=== PATIENT | male | born 1950 | race Caucasian/White ===

== ENCOUNTER 2018-01-12 01:22 | Outpatient (CLI) | payer MEDICARE, BC, SELFPAY ==
[2018-01-12 09:58] VITALS: BP 159/95; PULSE 95; RESP 16; TEMP 36.1; O2SAT 97
--- NOTE | 2018-01-12 09:59 | DI.REPORT_ITS ---
SYMPTOMS/DIAGNOSIS: RT ANTERIOR AND LATERAL THIGH PAIN, MERALGIA PARESTHETIC RT SIDE, G57.11, ULTRASOUND FOR FEMORAL CUTANEOUS NERVE BLOCK An ultrasound examination of the right lateral thigh was performed. A needle is noted in position and Dr. Marroquin carried out a nerve block. Please see the procedure report for further information.
[2018-01-12] MEDS: Dexamethasone 10 MG/ML VIAL IM (10:13)
[2018-01-12] MEDS: Lidocaine 2% Pres-Free 5 ML VIAL IJ (10:14)
[2018-01-12 10:26] VITALS: PULSE 95; RESP 20; O2SAT 96
--- NOTE | 2018-01-12 10:29 | PDOC.PAIN ---
Date of Service: 01/12/18 Time of Service: 10:29 Pain Clinic Procedure Note ULTRASOUND GUIDED RIGHT LATERAL FEMORAL CUTANEOUS NERVE BLOCK Pre-Procedural Evaluation: AFSHIN BILL has been referred to the [facility] for an Ultrasound Guided right lateral femoral cutaneous nerve block injection for a chief complaint of right anterior thigh pain. I did review the notes from Dr. Macario and Ms. Hall. Pre-procedure Pain ScoreL 7/10 DX: Meralgia Peresthetica Patient was interviewed and the medical record reviewed. There were no medical, pharmacologic, radiographic, or other structural contraindications to preforming an ultrasound guided injection. Risks and expected side effects as well as potential benefits of the procedure were reviewed. The patient consent form was signed and witnessed. Standard time-out procedure was performed. The use of direct ultrasound visualization of the needle (rather than a non-guided injection) was required to increase patient safety by excluding inadvertent intramuscular, intratendinous, or intraneural needle placement and minimizing bleeding by avoiding osteochondral or vascular injury from the needle. Additionally, the increased accuracy of placement may increase clinical effectiveness and will allow higher diagnostic specificity when evaluating effectiveness of this injection. Procedure Description: The patient was placed in the supine position and automated blood pressure cuff and pulse oximeter applied for monitoring during the procedure and recorded in the medical record. Pre-injection ultrasound scanning of the area of interest was performed using linear transducer, identifying relevant anatomy, landmarks, and neurovascular structures allowing for optimal needle path. The site was then prepared in the usual sterile fashion, using thorough Chlorhexadine preparation of the skin and sterile draping. The same ultrasound transducer was then passed into the sterile field using sterile probe cover and sterile ultrasound gel. The injection target was again visualized. Skin and subcutaneous tissues were anesthetized with 3 mL of 1% Lidocaine. A 22 guage needle} inch needle was placed under live ultrasound guidance, using an in-plane approach, to the target area. After visualization of the needle tip at the target area, a mixture of 3 mL 2% Lidocaine and 1 mL dexamethasone, totaling 3 mL of injectate was delivered after negative aspiration for blood. Ultrasound images were captured and stored for documentation purposes. Post-procedure Pain Score: 0/10 to the anterior thigh on the right (he continued to have the severe pain to the posterior thigh and posterior calf on the right. Vital signs were stable throughout the procedure and were as recorded in the docflowsheet by the nursing staff. Follow up plans and appointments were discussed with the patient.Post procedure instruction was given as documented in nursing documentation and having met discharge criteria, they were discharged from the [facility]. COMMENTS: He will call back with his 1-4 hour post procedure pain location.
--- NOTE | 2018-01-12 10:36 | PDOC.PAIN_ITS ---
Date of Service: 01/12/18 Time of Service: 10:29 Pain Clinic Procedure Note ULTRASOUND GUIDED RIGHT LATERAL FEMORAL CUTANEOUS NERVE BLOCK Pre-Procedural Evaluation: AFSHIN BILL has been referred to the [facility] for an Ultrasound Guided right lateral femoral cutaneous nerve block injection for a chief complaint of right anterior thigh pain. I did review the notes from Dr. Macario and Ms. Hall. Pre-procedure Pain ScoreL 7/10 DX: Meralgia Peresthetica Patient was interviewed and the medical record reviewed. There were no medical , pharmacologic, radiographic, or other structural contraindications to preforming an ultrasound guided injection. Risks and expected side effects as well as potential benefits of the procedure were reviewed. The patient consent form was signed and witnessed. Standard time-out procedure was performed. The use of direct ultrasound visualization of the needle (rather than a non- guided injection) was required to increase patient safety by excluding inadvertent intramuscular, intratendinous, or intraneural needle placement and minimizing bleeding by avoiding osteochondral or vascular injury from the needle. Additionally, the increased accuracy of placement may increase clinical effectiveness and will allow higher diagnostic specificity when evaluating effectiveness of this injection. Procedure Description: The patient was placed in the supine position and automated blood pressure cuff and pulse oximeter applied for monitoring during the procedure and recorded in the medical record. Pre-injection ultrasound scanning of the area of interest was performed using linear transducer, identifying relevant anatomy, landmarks, and neurovascular structures allowing for optimal needle path. The site was then prepared in the usual sterile fashion, using thorough Chlorhexadine preparation of the skin and sterile draping. The same ultrasound transducer was then passed into the sterile field using sterile probe cover and sterile ultrasound gel. The injection target was again visualized. Skin and subcutaneous tissues were anesthetized with 3 mL of 1% Lidocaine. A 22 guage needle} inch needle was placed under live ultrasound guidance, using an in -plane approach, to the target area. After visualization of the needle tip at the target area, a mixture of 3 mL 2% Lidocaine and 1 mL dexamethasone, totaling 3 mL of injectate was delivered after negative aspiration for blood. Ultrasound images were captured and stored for documentation purposes. Post-procedure Pain Score: 0/10 to the anterior thigh on the right (he continued to have the severe pain to the posterior thigh and posterior calf on the right. Vital signs were stable throughout the procedure and were as recorded in the docflowsheet by the nursing staff. Follow up plans and appointments were discussed with the patient.Post procedure instruction was given as documented in nursing documentation and having met discharge criteria, they were discharged from the [facility]. COMMENTS: He will call back with his 1-4 hour post procedure pain location.
== END 2018-01-12 01:23 ==
PROVIDERS: PCP Internal Medicine; Visit Provider Preventive Medicine Occupational Medicine
DX: G57.11 Meralgia paresthetica, right lower limb (principal)
CPT/HCPCS: 64450; 76942; J1100

== ENCOUNTER 2018-02-01 09:42 | Outpatient (CLI) | payer MEDICARE, BC, SELFPAY ==
[2018-02-01 10:06] VITALS: BP 133/76; PULSE 84; RESP 18; TEMP 36.4; O2SAT 97
[2018-02-01] MEDS: Omnipaque 240 MG/ML 50 ML BTL IJ (10:36)
[2018-02-01] MEDS: Dexamethasone Sod. Phos./Pres-Free 10 MG/ML VIAL IJ (10:37)
--- NOTE | 2018-02-01 10:39 | PDOC.PAIN ---
Pain Clinic Procedure Note Current Active Problems Problem Status Onset Lumbar radiculopathy Acute Lumbar Epidural Steroid Injection Procedure Note COMMENTS: I did review his notes from Dr. Macario and Ms. Hall. I also reviewed his recent lumbar spine MRI. AFSHIN BILL has been referred to the [facility] for lumbar epidural steroid injection. The patient was greeted by the nurse who verified patients name and . Patient was then taken to the fluoroscopy suite. The patient was interviewed and the medial record reviewed. There were no medical, pharmacologic, radiographic, or other structural contraindications to attempting fluoroscopically guided lumbar epidural steroid injection. Risks and expected side effects as well as potential benefits of the procedure were reviewed and voiced concerns expressed. The patient consent form was signed and witnessed. Standard patient time-out procedure was performed. The patient was placed in the prone position on the fluoroscopy table and automated blood pressure cuff and pulse oximeter applied. The skin entry point for entering/approaching the epidural space at L5-S1 on the right and marked. Following thorough chlorhexadine preparation of the skin and draping and 1% lidocaine infiltration of the skin entry point and subcutaneous tissues, a 18 gauge Touhy needle was placed under fluoroscopic guidance and with loss of resistance technique into the epidural space. Needle tip placement and depth were aided and confirmed by fluoroscopy. There was no paresthesia or return of blood or CSF through the needle. 1 cc's of Omnipaque 240 was injected with clear epidural spread confirmed with fluoroscopy. 15 mg Dexamethasone was injected. There was not any unusual discomfort expressed by AFSHIN BILL. Patient's vital signs were stable throughout the procedure and were as recorded in nursing records. Follow up plans and appointments were discussed with patient. Post procedure instruction was given as documented in nursing records and having met discharge criteria and was discharged from the [facility]. COMMENTS: This procedure can be completed up to 3 times per 12 months if it is found to be helpful.
--- NOTE | 2018-02-01 10:40 | DI.RAD_ITS ---
SYMPTOMS/DIAGNOSIS: TRANSFORAMINAL EPIDURAL STEROID INJECTION PAIN CLINIC LUMBAR SPINE: Fluoroscopy Time: 36.2 sec C-arm fluoroscopy was utilized by Dr. Marroquin. Hard copy shows apparent epidural injection at the L5-S1 level.
[2018-02-01 10:43] VITALS: BP 134/77; PULSE 91; RESP 20; O2SAT 96
== END 2018-02-01 10:02 ==
PROVIDERS: PCP Internal Medicine; Visit Provider Preventive Medicine Occupational Medicine
DX: M54.16 Radiculopathy, lumbar region (principal)
CPT/HCPCS: 62323; 72100; Q9967

== ENCOUNTER 2018-03-29 12:59 | Outpatient (CLI) | payer MEDICARE, BC, SELFPAY ==
--- NOTE | 2018-03-29 06:00 | DI.RAD_ITS ---
SYMPTOM/DIAGNOSIS: BURSITIS C-ARM FLUOROSCOPY: 03/29/18 Fluoroscopy Time: 22.8 seconds/22.8mGy C-arm fluoroscopy was utilized by Dr. Maldonado during right hip injection. Hard copy shows contrast injection in the right hip joint space.
[2018-03-29 13:20] VITALS: BP 141/93; PULSE 108; RESP 18; TEMP 36.8; O2SAT 97
--- NOTE | 2018-03-29 14:12 | DI.RAD_ITS ---
SYMPTOMS/DIAGNOSIS: RT GROIN PAIN RIGHT HIP AND PELVIS: Three views were obtained. There is marked narrowing of the intervertebral disc space at L 4 - 5 with vacuum disc phenomenon noted. Mild DJD of the SI joints noted bilaterally. There is marked degenerative changes of the hips right greater than left. Calcification is also seen in the soft tissues adjacent to the greater trochanter of the femur. No other significant bony abnormality is seen. CONCLUSION: Marked DJD as described above, right hip greater than left.
[2018-03-29 14:39] VITALS: BP 158/84; PULSE 109; RESP 17; O2SAT 97
--- NOTE | 2018-03-29 14:43 | PDOC.PAIN ---
Pain Clinic Procedure Note Current Active Problems Problem Status Onset Right hip pain Chronic INTRA-ARTICULAR {RIGHT /} hip JOINT STEROID INJECTION Date of Service: Patient: Axel Segovia Provider: Gabriele Maldonado COMMENTS: Patient has significant right hip arthritis Mr. Segovia was interviewed and the medical record reviewed. There were no medical, pharmacologic, radiographic or other structural contraindications to attempting fluoroscopically guided intra-articular {RIGHT hip joint injection. Risks and potential side effects as well as potential benefit of the procedure were reviewed with @NAME@, and {CLBP HIS voiced concerns were addressed. After I believed that the patient was completely informed, the printed consent form was signed. Standard time-out procedure was performed. Mr. Segovia was placed in the supine position on the fluoroscopy table and automated blood pressure cuff and pulse oximeter applied. The skin entry point for approaching superolateral aspect of the {RIGHT groin area was identified under the most advantageous fluoroscopic view and marked. Following thorough Chlorhexadine preparation of the skin and draping, 1% lidocaine infiltration of the skin entry point and subcutaneous tissues was accomplished using a 1.5 inch 25-gauge needle. Next, a 5 inch 22-gauge needle was advanced to the center of the femoral neck approach under fluoroscopic guidance into the {RIGHT hip joint. Intra-articular placement was confirmed by a clear arthrogram resulting from the injection of 1 ml Omnipaque 240. Next, 1 cc of Depomedral (40 mg/cc) mixed with 5 cc of 0.5% bupivacaine was injected into the joint. Mr. Segovia s vital signs were stable throughout the procedure and were as recorded in the docflowsheet by the nursing staff. If given, dosages of intravenous drugs for anxiolysis and analgesia were documented in MAR. Follow up plans and appointments were discussed with the patient. Post procedure instruction was given as documented in nursing documentation and having met discharge criteria, @HE@ was discharged from the [facility]. COMMENTS: No complications. Pain went from 02/22-11/22 F/U with Dr. Coleen Caba personally performed this entire procedure. Gabriele Maldonado MD Attending Physician
[2018-03-29] MEDS: Omnipaque 240 MG/ML 50 ML BTL IJ (14:55)
[2018-03-29] MEDS: methylPREDNISolone ACETATE 40 MG/ML VIAL IJ (14:55)
[2018-03-29] MEDS: Bupivacaine 0.5% Pres-Free 10 ML VIAL IJ (14:56)
== END 2018-03-29 13:19 ==
PROVIDERS: PCP Internal Medicine; Visit Provider Anesthesiology Pain Medicine
DX: M25.551 Pain in right hip (principal); G89.29 Other chronic pain
CPT/HCPCS: 20610; 77002; 73502; J1030; Q9967

== ENCOUNTER 2019-03-13 13:06 | Outpatient (CLI) | payer MEDICARE, BC, SELFPAY ==
--- NOTE | 2019-03-13 07:14 | DI.RAD_ITS ---
EXAM: XR PAIN CLINIC LUMBAR SP 2V CLINICAL HISTORY: Transforaminal Epidural Steroid Injection TECHNIQUE: Realtime digital imaging was performed. CONTRAST MATERIAL: Water soluble contrast was administered. COMPARISON: No exams were available for comparison FINDINGS: Fluoroscopy was utilized by Dr. Marroquin during the performance of a transforaminal epidural steroid inje ction. Please refer to the procedure report for complete details. Fluoro time: 41.1 sec
[2019-03-13 13:14] VITALS: BP 137/94; PULSE 89; RESP 16; TEMP 37; O2SAT 99
--- NOTE | 2019-03-13 13:56 | PDOC.PAIN_ITS ---
Pain Clinic Procedure Note Procedure Note Procedure Note: LUMBAR / SACRAL TRANSFORAMINAL INJECTION AFSHIN BILL has been referred to the [facility] for a transforaminal nerve root block and steroid injection. COMMENTS: Pain radiating in the left L4 nerve distribution. I did review his previous notes and most recent lumbar spine MRI. History of Type 2 DM. DX: Lumbosacral radiculopathy Patient was interviewed and the medical record reviewed. There were no medical, pharmacologic, radiographic or other structural contraindications to attempting fluoroscopically guided transforaminal nerve root block and epidural steroid injection. Risks and expected side effects as well as potential benefit of the procedure were reviewed and voiced concerns addressed. The printed consent form was signed and witnessed. Standard time-out procedure was performed. Patient was placed in the prone position on the fluoroscopy table and automated blood pressure cuff and pulse oximeter applied. Fluoroscopy was utilized to identify the left L4 neural foramen between L4 and L5. A skin srinivas was made for the needle insertion site. A Chlorhexadine prep was carried out, and sterile drapes were applied. Local anesthesia was achieved in the skin and subcutaneous tissues. A 22 gauge curved tip 5 spinal needle was then inserted, advanced with fluoroscopic guidance into the neural foramen, confirmed on the lateral view. After negative aspiration, 2 ml of Omnipaque 240 was injected confirming position in A/P and lateral views. This showed a good spread of dye transforaminally into the epidural space. There was no vascular update with contrast injection under continuous fluoroscopy and digital substraction. 10 mg of Dexamethasone was injected, followed by 0.5 ml of 1% Xylocaine flush for the nerve root block, as well. There was no unusual discomfort expressed.The needle was withdrawn. The patient tolerated the procedure well. A Band-Aid was applied. Vital signs were stable throughout the procedure and were as recorded in nursing records. If given, dosages of intravenous drugs for anxiolysis and analgesia were documented in nursing records. Follow up plans and appointments were discussed. Post procedure instruction was given as documented in nursing records and patient was discharged in the care of an identified telephone directory distributor driver. COMMENTS: Complete reproduction of his symptoms with this procedure. CC: Luis F Smith
[2019-03-13] MEDS: Omnipaque 240 MG/ML 50 ML BTL IJ (13:59)
[2019-03-13] MEDS: Dexamethasone Sod. Phos./Pres-Free 10 MG/ML VIAL IJ (13:59)
[2019-03-13 14:01] VITALS: BP 153/84; PULSE 99; RESP 20; O2SAT 99
== END 2019-03-13 13:26 ==
PROVIDERS: PCP Internal Medicine; Visit Provider Preventive Medicine Occupational Medicine
DX: M54.17 Radiculopathy, lumbosacral region (principal)
CPT/HCPCS: 64483; 72100; Q9967